=== PATIENT | male | born 1990 | race Caucasian/White ===

== ENCOUNTER 2020-09-28 15:05 | Emergency (ER) | payer OTHER ==
[~2020-09-28] VITALS: Ht 185.4 cm; Wt 74.8 kg
[2020-09-28] MEDS ORDERED: HYDROCODON-ACE1 EAC7 PO (15:55)
[2020-09-28] MEDS ORDERED: BACTRIM DS TAB1 EAC1 PO (15:55)
[2020-09-28 16:35] VITALS: BP 132/70
== END 2020-09-28 16:36 | disposition home or self-care (01) ==
LOC: M.ERS 15:05
DX: L02.512 Cutaneous abscess of left hand (principal)